=== PATIENT | female | born 1975 | race Hispanic/Latino ===

== ENCOUNTER 2017-01-08 10:49 | Outpatient (CLI) | payer OTHER ==
--- NOTE | 2017-01-08 13:50 | Ultrasound Report ---
Bilateral mammogram and left breast ultrasound: Patient presents with recent pain in her left breast. The pain is initially described as being in the retroareolar region. Routine views are obtained and compared to her prior examination in August 2015. There is a heterogeneously dense and generally symmetrically distributed fibroglandular pattern. There is no focal mass and no architectural distortion. Compared to her prior examination there are no interval changes. Ultrasound in the retroareolar region as well as in the 11 and 12:00 locations which she later described as the location of pain demonstrated an essentially unremarkable breast pattern. CAD used. Impression: Stable, normal mammogram and unremarkable targeted left breast ultrasound. Recommendation oh Clinical followup. Annual mammogram followup. Any further evaluation at this time should be based in your concern. BI-RADS CATEGORY: 1 = Negative ACR BI-RADS MAMMOGRAPHIC CODES: 0 = Needs additional imaging evaluation; 1 = Negative; 2 = Benign; 3 = Probably benign; 4 = Suspicious; 5 = Malignant; 6 = Known biopsy-proven malignancy COMMENT: 1. Dense breast tissue, i.e., adenosis, fibrocystic changes, etc., may obscure an underlying neoplasm. 2. Approximately 10% of cancers are not detected with mammography. 3. A negative mammography report should not delay biopsy if a clinically suspicious mass is present.
== END 2017-01-08 10:50 | disposition home or self-care (01) ==
LOC: SPVWC 10:49
PROVIDERS: ATTEND Obstetrics & Gynecology
DX: N64.4 Mastodynia (principal)
CPT/HCPCS: 76642; G0204; 77066

== ENCOUNTER 2018-07-04 11:47 | Outpatient (CLI) | payer OTHER ==
--- NOTE | 2018-07-04 12:58 | Mammography Report ---
BILATERAL DIGITAL DIAGNOSTIC MAMMOGRAM with CAD and LEFT BREAST ULTRASOUND: 07/04/18 CLINICAL: Global left breast pain. COMPARISON:01/08/17 and 08/05/15 FINDINGS: The breasts are heterogeneously dense, which may obscure small masses.No mass, suspicious architectural distortion or suspicious calcifications. Ultrasound of the left breast (including all four quadrants and the retroareolar area) demonstrated normal fibroglandular and fatty structures. No mass, cyst or shadowing. IMPRESSION: Negative mammogram and negative left breast ultrasound. No explanation for left breast pain. BI-RADS CATEGORY: 1 -- Negative RECOMMENDATION: Routine mammographic screening in one year. COMMENT: Patient follow-up letters are generated by our [employer] application.
== END 2018-07-04 11:48 | disposition home or self-care (01) ==
LOC: SPVWC 11:47
PROVIDERS: ATTEND Obstetrics & Gynecology
DX: N64.4 Mastodynia (principal)
CPT/HCPCS: 77066